=== PATIENT | male | born 1945 | race Caucasian/White ===

== ENCOUNTER 2023-07-18 09:09 | Observation (INO) ==
--- NOTE | 2023-07-18 09:22 | Emergency Department Note ---
Impression & Plan Aspiration pneumonia, Dementia, Leukocytosis, CKD (chronic kidney disease) ED Provider Note NAME: JOSE LUIS HARRELL AGE: 77 SEX: M : 1945 ARRIVES VIA: Ambulance INFORMANT: Patient ED PROVIDER(S): Erick Zayas MD CHIEF COMPLAINT: Coffee ground emesis, referred. PLAN: Disposition: Admit MEDICAL DECISION MAKING: The patient is a 77-year-old gentleman with a past medical history of dementia, diabetes, COPD who presents to the emergency department via EMS from his memory care unit at [facility] for evaluation of coffee-ground emesis x 2 that occurred this morning. Patient is a poor historian. 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 On evaluation patient is chronically ill-appearing but no distress, afebrile with heart in the 90s and vital signs otherwise stable. Appears clinically dry. Abdomen is nontender. EKG without overt acute ischemia. Chest x-ray with patchy mid to lower consolidation concerning for aspiration pneumonia. WBC 17.2 K with neutrophil predominance though no left shift. Hemoglobin and platelets within normal limits. Creatinine 1.9, slightly increased from recent but approximate to prior values. LFTs are unremarkable. Lipase not elevated. Procalcitonin is within normal limits. UA without evidence of infection. Depakote level is low. COVID-19 RNA, DAMIAN test was negative. Given the patient's leukocytosis and x-ray findings consistent with pneumonia I did review the patient's symptoms and presentation with his daughter over the phone. Given these findings and concern that he may not be compliant with his medications at his facility she did agree with and prefer for admission for further management. Blood cultures were obtained and treatment initiated with IV Zosyn. Case was d/w Dr. Crockett, [facility] hospital[place] who will evaluate the patient for admission. Triage Nursing notes reviewed and agree them. Prior/external medical records reviewed Vital Signs: reviewed Differential diagnosis: Gastroenteritis, food borne illness, infections, appendicitis, diverticulitis, inflammatory bowel disease, obstruction, GI bleed, biliary pathology, volvulus, as well as other pathologies. ER treatment provided: See below. Diagnostics interpreted by me: ECG: Sinus rhythm with PACs, 95 bpm, no overt ST elevation or depression, QTc 464 QRS 84. Cardiac Monitoring: An order for continuous cardiac monitoring was placed and demonstrated Sinus rhythm with PACs, 95 bpm. Laboratory studies: See below Imaging studies: See below Consultation(s): Case was d/w Dr. Crockett, [facility] hospitalist who will evaluate the patient for admission. HPI: The patient is a 77-year-old gentleman with a past medical history of dementia, diabetes, COPD who presents to the emergency department via EMS from his memory care unit at [facility] for evaluation of coffee-ground emesis x 2 that occurred this morning. Patient is a poor historian. 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 ROS: See above HPI for pertinent positives & negatives. A total of 10 systems reviewed and were otherwise negative. VITALS:See Below PHYSICAL EXAMINATION: GENERAL: Awake, alert, chronically ill-appearing, in no distress HENT: Normocephalic, atraumatic. Oropharynx with dry mucous membranes and otherwise unremarkable. EYES: Normal conjunctiva. Sclera non-icteric. NECK: Supple. No nuchal rigidity. FROM. No JVD. RESPIRATORY: Clear to auscultation. CARDIAC: Regular rate, normal rhythm. Extremities warm and well perfused. Pulses equal. ABDOMEN: Soft, non-distended. No tenderness to palpation. No rebound or guarding. No masses. MUSCULOSKELETAL: Chest examination reveals no tenderness. The back is symmetrical on inspection without obvious abnormality. There is no CVA tenderness to palpation. No joint edema. LOWER EXTREMITIES: Calves are equal size bilaterally and non-tender. No edema. No discoloration. NEURO: Confused at baseline for dementia. No focal sensory or motor deficits noted. SKIN: No rash or jaundice noted. 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 Hyperlipidemia Dementia Social History Smoking Status: Unknown if ever smoked Preferred Language: Vincentian Communication Ability: Unable Art Class Model Required: No Beliefs That Will Affect Care: None Current Living Situation: Half-Way Current Living Situation Comment: [facility] Other Information That Helps Us Care for You: No Assistive Devices: Hearing Aid - Bilateral Allergies Allergies Allergy/AdvReac Type Severity Reaction Status Date / Time lorazepam Allergy Unknown Verified 07/18/23 10:36 IVP dye Allergy Unknown Uncoded 07/18/23 10:36 Home Meds Home Medications Medication Instructions Recorded Confirmed acetaminophen 325 mg tablet 650 mg PO Q6H PRN Pain or Fever 07/18/23 07/18/23 aspirin 81 mg chewable tablet 81 mg PO DAILY 07/18/23 07/18/23 azithromycin 500 mg tablet 500 mg PO 3XWK 07/18/23 07/18/23 bisacodyl 10 mg rectal suppository 10 mg NC DAILY PRN Constipation 07/18/23 07/18/23 (Dulcolax (bisacodyl)) clobetasol 0.05 % topical cream 1 applic topical BID rash on 07/18/23 07/18/23 trunk/arms dextrose 40 % oral gel 1 ea PO DAILY PRN Hypoglycemia 07/18/23 07/18/23 less than 60 diphenhydramine-zinc acetate 1 1 applic topical DAILY rash 07/18/23 07/18/23 %-0.1 % topical cream (Benadryl Itch Stopping) divalproex 125 mg capsule,delayed 0 mg PO TID 07/18/23 07/18/23 release sprinkle ferrous sulfate 325 mg (65 mg 325 mg PO BID 07/18/23 07/18/23 iron) tablet (FeroSul) furosemide 40 mg tablet 40 mg PO DAILY 07/18/23 07/18/23 glucagon HCl 1 mg solution for 1 mg IM DAILY PRN hypoglycemia 07/18/23 07/18/23 injection (Glucagon (HCl) Emergency Kit) haloperidol 0.5 mg tablet 0.25 mg PO Q12H PRN Behavioral 07/18/23 07/18/23 Disturbance insulin glargine 100 unit/mL (3 17 unit subcut HS 07/18/23 07/18/23 mL) subcutaneous pen (Lantus Solostar U-100 Insulin) insulin lispro 100 unit/mL 1 sliding scale dose subcut 07/18/23 07/18/23 subcutaneous pen (Humalog KwikPen USEASDIRECTD (U-100) Insulin) magnesium hydroxide 400 mg/5 mL 2,400 mg PO DAILY PRN Constipation 07/18/23 07/18/23 oral suspension (Milk of Magnesia) mirtazapine 15 mg tablet 15 mg PO HS 07/18/23 07/18/23 ondansetron HCl 4 mg tablet 4 mg PO Q6H PRN Nausea And Vomiting 07/18/23 07/18/23 pantoprazole 20 mg tablet,delayed 20 mg PO QAM 07/18/23 07/18/23 release pramoxine 1 % lotion 1 applic topical BID rash 07/18/23 07/18/23 quetiapine 100 mg tablet 150 mg PO BID 07/18/23 07/18/23 roflumilast 500 mcg tablet 500 mcg PO DAILY 07/18/23 07/18/23 sodium phosphates 19 gram-7 118 ml NC DAILY PRN Constipation 07/18/23 07/18/23 gram/118 mL enema (Enema) sucralfate 1 gram tablet 1 g PO BID 07/18/23 07/18/23 Results & Data (ED) Vital Signs Vital Signs - 24 hr 07/18/23 09:15 07/18/23 09:16 07/18/23 09:17 Temperature 36.1 C L Temperature Source Oral Pulse Rate 98 H 96 H 99 H Pulse Rate [Apical] Pulse Rate from SpO2 Sensor 96 H Respiratory Rate 19 20 Respiratory Effort / Characteristics Non-Labored Spontaneous Respiratory Depth Normal Blood Pressure 126/78 Blood Pressure [Right Arm] Blood Pressure Mean 94 Blood Pressure Mean [Right Arm] Pulse Oximetry 92 92 Oxygen Delivery Method Room Air Sepsis Recent Fever Within 48 Hours No Sepsis New/Unexplained Change in Mental Status N/A Sepsis Action Taken by Nursing No Action Required 07/18/23 09:38 07/18/23 10:00 07/18/23 10:30 Temperature Temperature Source Pulse Rate 95 H 93 H Pulse Rate [Apical] 94 H Pulse Rate from SpO2 Sensor 95 H 93 H Respiratory Rate 18 18 20 Respiratory Effort / Characteristics Non-Labored Spontaneous Respiratory Depth Normal Blood Pressure Blood Pressure [Right Arm] 111/56 L Blood Pressure Mean Blood Pressure Mean [Right Arm] 74 Pulse Oximetry 92 97 93 Oxygen Delivery Method Room Air Sepsis Recent Fever Within 48 Hours Sepsis New/Unexplained Change in Mental Status Sepsis Action Taken by Nursing Laboratory Data Attestation: I reviewed the patient's lab results. 07/18/23 20:09 07/18/23 09:30 Lab Results 07/18/23 07/18/23 07/18/23 Range/Units 09:28 09:29 09:30 WBC 17.28 H (4.8-10.8) K/ul RBC 4.54 L (4.70-6.10) M/uL Hgb 14.7 (14.0-18.0) g/dl Hct 41.6 L (42.0-52.0) % MCV 91.6 (80.0-100.0) fL MCH 32.4 (25.0-34.0) pg MCHC 35.3 (32.0-36.0) g/dL RDW Std Deviation 40.0 (36.4-46.3) fL RDW Coeff of Tejinder 12.2 (11.5-14.5) % Plt Count 291 (130-400) K/uL MPV 10.1 (9.4-12.4) fL Immature Gran % (Auto) 0.6 % Neut % (Auto) 87.5 % Lymph % (Auto) 4.9 % [place] % (Auto) 6.7 % Eos % (Auto) 0.0 % Baso % (Auto) 0.3 % Neut # (Auto) 15.11 H (1.40-6.50) K/uL Lymph # (Auto) 0.85 L (1.20-3.40) K/uL [place] # (Auto) 1.15 H (0.11-0.59) K/uL Eos # (Auto) 0.00 (0.00-0.50) K/uL Baso # (Auto) 0.06 (0.00-0.20) K/uL Immature Gran # (Auto) 0.11 (0.01-0.20) K/uL PT 11.4 (9.0-12.0) Seconds INR 1.0 (0.9-1.1) Sodium 138 (136-145) mmol/L Potassium 3.4 L (3.5-5.1) mmol/L Chloride 93 L (98-107) mmol/L Carbon Dioxide 36 H (21-32) mmol/L Anion Gap 9 (3-11) BUN 41 H (6-23) mg/dl Creatinine 1.93 H (0.6-1.4) mg/dl Est Cr Clr Drug Dosing Not Reportable Est GFR ( Amer) 37.3 ml/min Est GFR (Non-Af Amer) 32.2 ml/min BUN/Creatinine Ratio 21.2 H (10-20) Glucose 298 H (70-99(Fasting)) mg/dl Lactate (0.4-2.0) mmol/L Calcium 10.5 H (8.6-10.3) mg/dl Total Bilirubin 0.9 (0.2-1.0) mg/dl AST 17 (13-39) U/L ALT 16 (7-52) U/L Alkaline Phosphatase 61 (34-104) U/L Total Protein 6.8 (6.0-8.3) gm/dl Albumin 4.1 (3.4-5.0) gm/dl Globulin 2.7 (2.5-4.0) gm/dl Albumin/Globulin Ratio 1.5 (0.9-2) Lipase 9 L (11-82) U/L Procalcitonin 0.22 (0-0.5) ng/ml Valproic Acid 18 L (50-100) mcg/ml 07/18/23 Range/Units 12:48 WBC (4.8-10.8) K/ul RBC (4.70-6.10) M/uL Hgb (14.0-18.0) g/dl Hct (42.0-52.0) % MCV (80.0-100.0) fL MCH (25.0-34.0) pg MCHC (32.0-36.0) g/dL RDW Std Deviation (36.4-46.3) fL RDW Coeff of Tejinder (11.5-14.5) % Plt Count (130-400) K/uL MPV (9.4-12.4) fL Immature Gran % (Auto) % Neut % (Auto) % Lymph % (Auto) % [place] % (Auto) % Eos % (Auto) % Baso % (Auto) % Neut # (Auto) (1.40-6.50) K/uL Lymph # (Auto) (1.20-3.40) K/uL [place] # (Auto) (0.11-0.59) K/uL Eos # (Auto) (0.00-0.50) K/uL Baso # (Auto) (0.00-0.20) K/uL Immature Gran # (Auto) (0.01-0.20) K/uL PT (9.0-12.0) Seconds INR (0.9-1.1) Sodium (136-145) mmol/L Potassium (3.5-5.1) mmol/L Chloride (98-107) mmol/L Carbon Dioxide (21-32) mmol/L Anion Gap (3-11) BUN (6-23) mg/dl Creatinine (0.6-1.4) mg/dl Est Cr Clr Drug Dosing Est GFR ( Amer) ml/min Est GFR (Non-Af Amer) ml/min BUN/Creatinine Ratio (10-20) Glucose (70-99(Fasting)) mg/dl Lactate 1.9 (0.4-2.0) mmol/L Calcium (8.6-10.3) mg/dl Total Bilirubin (0.2-1.0) mg/dl AST (13-39) U/L ALT (7-52) U/L Alkaline Phosphatase (34-104) U/L Total Protein (6.0-8.3) gm/dl Albumin (3.4-5.0) gm/dl Globulin (2.5-4.0) gm/dl Albumin/Globulin Ratio (0.9-2) Lipase (11-82) U/L Procalcitonin (0-0.5) ng/ml Valproic Acid (50-100) mcg/ml Administered Medications Clobetasol Propionate (Clobetasol Propionate 0.05% Cream 15 Gm Tube) 1 appln TOP BID JEFE Stop: 08/17/23 20:59 Last Admin: 07/18/23 20:20 Dose: 1 appln Documented By: ROE Divalproex Sodium (Divalproex Sodium Sprinkle/Del-Rel 125 Mg Cap) 250 mg PO BID JEFE Stop: 08/17/23 20:59 Last Admin: 07/18/23 20:19 Dose: 250 mg Documented By: ROE Parenteral Electrolytes (Plasma-Lyte A Ph 7.4) 1,000 mls @ 125 mls/hr IV .Q8H JEFE Stop: 07/19/23 06:29 Last Admin: 07/18/23 15:32 Dose: 125 mls/hr Documented By: ACC Pantoprazole Sodium 40 mg/ (Syringe) 10 mls @ 5 mls/min IV BID JEFE Stop: 08/17/23 20:59 Last Admin: 07/18/23 20:18 Dose: 5 mls/min Documented By: ROE Ampicillin Sodium/Sulbactam Sodium 3,000 mg/ Sodium Chloride 100 mls @ 100 mls/hr IV Q6H JEFE Stop: 07/25/23 19:59 Last Infusion: 07/18/23 21:21 Dose: Infused Documented By: Admin: 07/18/23 20:18 Dose: 100 mls/hr Documented By: ROE Insulin Aspart (Insulin Aspart Per Unit Charge) 0 units SC Q6 JEFE Stop: 08/17/23 17:59 Last Admin: 07/18/23 18:35 Dose: 2 units Documented By: MIGUEL Co-signed By: BOLIVAR Insulin Glargine (Lantus Per Unit Charge) 8 units SQ HS JEFE Stop: 08/17/23 20:59 Last Admin: 07/18/23 21:21 Dose: Not Given Documented By: ROE Mirtazapine (Mirtazapine Tab 15 Mg Tab) 15 mg PO HS JEFE Stop: 08/17/23 20:59 Last Admin: 07/18/23 20:19 Dose: 15 mg Documented By: ROE Quetiapine Fumarate (Quetiapine Fumarate 100 Mg Tablet) 150 mg PO BID JEFE Stop: 08/17/23 20:59 Last Admin: 07/18/23 20:19 Dose: 150 mg Documented By: ROE Sucralfate (Sucralfate 1 Gm Tab) 1 gm PO BID JEFE Stop: 08/17/23 20:59 Last Admin: 07/18/23 20:19 Dose: 1 gm Documented By: ROE Discontinued Medications Sodium Chloride (Nss) 500 mls @ 999 mls/hr IV .Q31M ONE Stop: 07/18/23 09:42 Last Infusion: 07/18/23 10:28 Dose: Infused Documented By: Admin: 07/18/23 09:36 Dose: 999 mls/hr Documented By: KELIN Famotidine (Pepcid 20mg Iv Push) 20 mg in 5 mls @ 2.5 mls/min IV NOW STA Stop: 07/18/23 09:28 Last Admin: 07/18/23 09:36 Dose: 2.5 mls/min Documented By: KELIN Pantoprazole Sodium 40 mg/ (Syringe) 10 mls @ 5 mls/min IV NOW ONE Stop: 07/18/23 09:29 Last Admin: 07/18/23 10:28 Dose: 5 mls/min Documented By: KELIN Piperacillin Sod/Tazobactam Sod (Zosyn) 4.5 gm in 100 mls @ 200 mls/hr IV NOW ONE Stop: 07/18/23 13:09 Last Infusion: 07/18/23 15:38 Dose: Infused Documented By: Admin: 07/18/23 13:50 Dose: 200 mls/hr Documented By: ACC Potassium Chloride (K Ashwin / Wtr) 10 meq in 100 mls @ 100 mls/hr IV ONE ONE Stop: 07/18/23 15:34 Last Admin: 07/18/23 15:37 Dose: Not Given Documented By: ACC Potassium Chloride (K Ashwin / Wtr) 10 meq in 100 mls @ 100 mls/hr IV Q1H JEFE Stop: 07/18/23 16:44 Last Infusion: 07/18/23 20:08 Dose: Infused Documented By: Admin: 07/18/23 18:04 Dose: 100 mls/hr Documented By: Infusion: 07/18/23 18:00 Dose: Infused Documented By: Admin: 07/18/23 17:00 Dose: 100 mls/hr Documented By: MIGUEL Insulin Aspart (Insulin Aspart Per Unit Charge) 0 units SC ACHS JEFE Stop: 08/17/23 16:29 Last Admin: 07/18/23 17:57 Dose: Not Given Documented By: MIGUEL Ondansetron HCl (Ondansetron Inj 2 Mg/Ml 2 Ml Vial) 4 mg IV NOW STA Stop: 07/18/23 09:29 Last Admin: 07/18/23 09:36 Dose: 4 mg Documented By: KELIN Imaging Data Radiologist's Impression: Chest X-Ray 07/18/23 10:40 SINGLE VIEW CHEST CLINICAL HISTORY: Vomiting. Generalized abdominal pain. FINDINGS: An AP, portable, upright chest radiograph is obtained. No prior studies are available for comparison at the time of dictation. The heart is enlarged. Patchy airspace consolidation is seen in the mid to lower lungs bilaterally. No large pleural effusion or pneumothorax is seen. The skeletal structures are osteopenic. The bony thorax is grossly intact. Arthritic change is seen in the shoulders. IMPRESSION: 1. Patchy airspace consolidation is seen in mid to lower lungs bilaterally. Correlate clinically for evidence of pneumonia/aspiration pneumonitis. Radiographic follow-up to resolution is recommended. 2. Cardiomegaly without clear radiographic evidence of congestive failure. ACT 112: Negative or not required by law. Electronically signed by: Domenico Childress M.D. 07/18/2023 11:13 AM Discharge Plan Visit Data Chief Complaint: GI Bleed ED Provider: Erick Zayas Discharge Problem: Aspiration pneumonia, Dementia, Leukocytosis, CKD (chronic kidney disease) Patient Disposition: Admitted As Inpatient Discharge Instructions Interventions: ED Discharge Assessment Last Done: 07/18/23 15:44 Discharge Problem: Aspiration pneumonia Qualifiers: Aspiration pneumonia type: unspecified Laterality: bilateral Lung location: l ower lobe of lung Qualified Code(s): J69.0 - Pneumonitis due to inhalation of food and vomit Dementia Qualifiers: Dementia type: unspecified type Dementia severity: unspecified severity D ementia behavioral or psychological symptom: unspecified whether behavioral, psychotic, or mood disturbance or anxiety Qualified Code(s): F03.90 - Unspecified dementia, unspecified severity, without behavioral disturbance, psychotic disturbance, mood disturbance, and anxiety Leukocytosis Qualifiers: Leukocytosis type: unspecified Qualified Code(s): D72.829 - Elevated white blood cell count, unspecified CKD (chronic kidney disease) Qualifiers: Chronic kidney disease stage: unspecified stage Qualified Code(s): N18.9 - Chronic kidney disease, unspecified
[2023-07-18] MEDS: SODIUM CHLORIDE 0.9% 500 ML IV ONE (09:36)
[2023-07-18] MEDS: ONDANSETRON INJ 2 MG/ML 2 ML VIAL IV STA (09:36)
[2023-07-18] MEDS: FAMOTIDINE 20MG IV PUSH 20 MG/5 ML SYR IV STA (09:36)
[2023-07-18 09:51] LABS: Basophils # (auto) 0.06 K/uL (0.00-0.20); Basophils % (auto) 0.3 %; Hematocrit (blood only) 41.6 % (42.0-52.0); Hemoglobin 14.7 g/dl (14.0-18.0); Immature Granulocytes # (auto) 0.11 K/uL (0.01-0.20); Immature Granulocytes % (auto) 0.6 %; Lymphocytes # (auto) 0.85 K/uL (1.20-3.40); Lymphocytes % (auto) 4.9 %; Mean Corpuscular Hemoglobin 32.4 pg (25.0-34.0); Mean Corpuscular Hgb Conc 35.3 g/dL (32.0-36.0); Mean Corpuscular Volume 91.6 fL (80.0-100.0); Mean Platelet Volume 10.1 fL (9.4-12.4); Monocytes # (auto) 1.15 K/uL (0.11-0.59); Monocytes % (auto) 6.7 %; Neutrophils # (auto) 15.11 K/uL (1.40-6.50); Neutrophils % (auto) 87.5 %; Platelet Count 291 K/uL (130-400); RDW Coefficient of Variation 12.2 % (11.5-14.5); Red Blood Count 4.54 M/uL (4.70-6.10); White Blood Count 17.28 K/ul (4.8-10.8)
[2023-07-18 10:05] LABS: Alanine Aminotransferase 16 U/L (7-52); Albumin Globulin Ratio 1.5 (0.9-2); Albumin Level 4.1 gm/dl (3.4-5.0); Alkaline Phosphatase 61 U/L (34-104); Anion Gap 9 (3-11); Aspartate Aminotransferase 17 U/L (13-39); BUN Creatinine Ratio 21.2 (10-20); Bilirubin,Total 0.9 mg/dl (0.2-1.0); Blood Urea Nitrogen 41 mg/dl (6-23); Calcium 10.5 mg/dl (8.6-10.3); Carbon Dioxide 36 mmol/L (21-32); Chloride 93 mmol/L (98-107); Est GFR (African American) 37.3 ml/min; Est GFR (Non-African American) 32.2 ml/min; Globulin 2.7 gm/dl (2.5-4.0); Glucose 298 mg/dl (70-99(Fasting)); Lipase 9 U/L (11-82); Potassium 3.4 mmol/L (3.5-5.1); Sodium 138 mmol/L (136-145); Total Protein 6.8 gm/dl (6.0-8.3)
[2023-07-18 10:15] LABS: Prothrombin Time 11.4 Seconds (9.0-12.0)
[2023-07-18] MEDS: PANTOprazole 40 MG in SYRINGE 0 ML IV ONE (10:28)
--- NOTE | 2023-07-18 11:14 | XRay Report ---
SINGLE VIEW CHEST CLINICAL HISTORY: Vomiting. Generalized abdominal pain. FINDINGS: An AP, portable, upright chest radiograph is obtained. No prior studies are available for c omparison at the time of dictation. The heart is enlarged. Patchy airspace consolidation is seen in t he mid to lower lungs bilaterally. No large pleural effusion or pneumothorax is seen. The skeletal st ructures are osteopenic. The bony thorax is grossly intact. Arthritic change is seen in the shoulders . IMPRESSION: 1. Patchy airspace consolidation is seen in mid to lower lungs bilaterally. Correlate clinically for evidence of pneumonia/aspiration pneumonitis. Radiographic follow-up to resolution is recommended. 2. Cardiomegaly without clear radiographic evidence of congestive failure. ACT 112: Negative or not required by law. Electronically signed by: Domenico Childress M.D. 07/18/2023 11:13 AM
--- NOTE | 2023-07-18 12:49 | History & Physical Report ---
Date of Service July 18, 2023 Assessment & Plan (1) Aspiration pneumonia: Plan: Coffee-ground emesis x 2 episodes on the evening of 07/16, and morning of 07/17 Hx of aspiration pneumonia Leukocytosis at 17.28 with a neutrophil predominance on arrival; afebrile CXR revealed patchy airspace consolidation consistent with aspiration pneumonitis MRSA swab ordered, pending Blood cultures ordered, pending Keep n.p.o. for now with the exception of p.o. medications Elevate HOB >45 degrees Zosyn 4.5 g IV given in the ED Will switch to Unasyn 3000 mg IV q6h Zofran as needed for nausea/vomiting Speech therapy consult/eval to assess for advancement of diet Aspiration precautions A.m. CBC, BMP (2) GI bleed: Plan: In the setting of coffee-ground emesis Hgb 14.7 on arrival Elevated BUN/creatinine at 21.2 Protonix 40 mg IV BID IVF resuscitation with Plasma-Lyte at 125mL/hr x 2 N.p.o. (except p.o. medications) Aspiration precautions Continue to monitor H&H (3) Dementia: Plan: Patient is currently around his cognitive baseline, per daughter and [facility] Continue Seroquel (4) Personal history of pulmonary embolism: Plan: Per [facility], patient normally takes aspirin daily for prophylaxis (however, this is listed as paroxysmal a fib on med rec) Hold in the setting of hematemesis (5) Type 2 diabetes mellitus with diabetic chronic kidney disease: Plan: Last A1c 7.2% on 07/14/23 Glucose 298 on arrival BSG q6h while NPO, then BSG ACHS once assessed by speech therapy Keep n.p.o. for now then advance to T2DM diet as tolerated Patient normally takes Lantus 17u HS Will dose reduced to 8u HS while inpatient/n.p.o. SSI with target goal range [id number], CF 45, carb ratio 15 Adjust regimen as needed (6) Unspecified mood [affective] disorder: Plan: Continue Depakote Haldol 0.25 mg p.o. q12h as needed for agitation (7) Hypokalemia: Plan: Mild; K 3.4 on arrival Likely secondary to recent vomiting K rider 10mEq x 2 Re-check a.m. potassium (8) COPD (chronic obstructive pulmonary disease): Plan: Continue roflumilast Hold Azithromycin ppx (9) Aphasia: Plan Disposition: Admit to [facility] DNR/DNI Keep n.p.o. for now, advance diet as tolerated (aspiration precautions) VTE PPx: TEDs; Hold chemical DVT PPx in setting of ground coffee emesis History of Present Illness Chief Complaint: GI bleed, coffee-ground emesis Primary Care Provider: [facility]ardo is a 77-year-old male with PMH of dementia, aspiration pneumonia, GERD, COPD, HLD, aphasia, pulmonary embolism, and T2DM. He presented via EMS from [facility] for coffee-ground emesis that began the evening of 07/16. Two episodes of coffee-ground emesis, with the first being last night around midnight, and the second being around 0800 on 07/17. Patient is a poor historian at baseline due to his advanced dementia; he is nonverbal in the exam room, and does not respond to questioning or commands. Per review of EMS notes, he did not take his regular morning medications today. Spoke on the phone with TYSON Martinez at [facility] ([phone]), to obtain further history. Hx of Carlton's esophagus. Patient has a history of aspiration pneumonia, and has had several recurrent episodes of ground coffee emesis over the past year; records from [facility]. He currently takes iron, Protonix, and Carafate for this. TYSON also notes that he is on azithromycin Friday, Friday, and Friday for chronic aspiration pneumonia prophylaxis; ? may be for COPD. Patient does have a history of a pulmonary embolism, and is currently on aspirin for prophylaxis, but did not take aspirin yesterday due to the coffee-ground emesis. TYSON also notes that he was previously on hospice services, but this was revoked during his last hospital visit, and the daughter/POA has chosen not to reinitiate hospice. Patient has pulmonary nodules, however these were never worked up. As for cognitive baseline, TYSON reports that he typically responds to commands, but is was around his baseline the last time he was seen. She notes he can become agitated in the past, and has required PRN Haldol at times. 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 Spoke on the phone with patient's daughter/POA (Edwin) who is okay with him coming into the hospital for the treatment of aspiration PNA; this would effectively revoke his current POLST form for comfort measures only (per Dr. Crockett). Patient's daughter clarified that the patient was placed on hospice 1.5 years ago for what was thought to be terminal cancer; after about a year he was taken off hospice. She declines a palliative care consult at this time. However, she would like to speak with case management regarding options for a new detention that is closer to her place in [place]. Patient's daughter notes that he does have a mild allergy to amoxicillin (notes that his face flushes and turns red). However, she does note that he has been given Augmentin and Unasyn in the past for his aspiration pneumonia and has never had rash, hives, or anaphylaxis. She does confirm that he is a DNR/DNI, and would like no scopes or feeding tubes. She believes he was placed on prednisone recently for his rash. She also notes that he has been around his cognitive baseline, and is not normally oriented to name/, and does not normally respond to questioning/commands. She has been trying to decrease his Seroquel from 3 times daily to twice daily. ED course: Zosyn 4.5 g IV NSS 500 mL IV Famotidine 20 mg IV Protonix 4 mg IV Zofran 4 mg IV Unable to obtain ROS given patient's advanced dementia. Allergies Allergy/AdvReac Type Severity Reaction Status Date / Time lorazepam Allergy Unknown Verified 07/18/23 10:36 IVP dye Allergy Unknown Uncoded 07/18/23 10:36 Home Medications Medication Instructions Recorded Confirmed Type acetaminophen 325 mg tablet 650 mg PO Q6H PRN Pain or Fever 07/18/23 07/18/23 History aspirin 81 mg chewable tablet 81 mg PO DAILY 07/18/23 07/18/23 History azithromycin 500 mg tablet 500 mg PO 3XWK 07/18/23 07/18/23 History bisacodyl 10 mg rectal suppository 10 mg OR DAILY PRN Constipation 07/18/23 07/18/23 History (Dulcolax (bisacodyl)) clobetasol 0.05 % topical cream 1 applic topical BID rash on 07/18/23 07/18/23 History trunk/arms dextrose 40 % oral gel 1 ea PO DAILY PRN Hypoglycemia 07/18/23 07/18/23 History less than 60 diphenhydramine-zinc acetate 1 1 applic topical DAILY rash 07/18/23 07/18/23 History %-0.1 % topical cream (Benadryl Itch Stopping) divalproex 125 mg capsule,delayed 0 mg PO TID 07/18/23 07/18/23 History release sprinkle ferrous sulfate 325 mg (65 mg 325 mg PO BID 07/18/23 07/18/23 History iron) tablet (FeroSul) furosemide 40 mg tablet 40 mg PO DAILY 07/18/23 07/18/23 History glucagon HCl 1 mg solution for 1 mg IM DAILY PRN hypoglycemia 07/18/23 07/18/23 History injection (Glucagon (HCl) Emergency Kit) haloperidol 0.5 mg tablet 0.25 mg PO Q12H PRN Behavioral 07/18/23 07/18/23 History Disturbance insulin glargine 100 unit/mL (3 17 unit subcut HS 07/18/23 07/18/23 History mL) subcutaneous pen (Lantus Solostar U-100 Insulin) insulin lispro 100 unit/mL 1 sliding scale dose subcut 07/18/23 07/18/23 History subcutaneous pen (Humalog KwikPen USEASDIRECTD (U-100) Insulin) magnesium hydroxide 400 mg/5 mL 2,400 mg PO DAILY PRN Constipation 07/18/23 07/18/23 History oral suspension (Milk of Magnesia) mirtazapine 15 mg tablet 15 mg PO HS 07/18/23 07/18/23 History ondansetron HCl 4 mg tablet 4 mg PO Q6H PRN Nausea And Vomiting 07/18/23 07/18/23 History pantoprazole 20 mg tablet,delayed 20 mg PO QAM 07/18/23 07/18/23 History release pramoxine 1 % lotion 1 applic topical BID rash 07/18/23 07/18/23 History quetiapine 100 mg tablet 150 mg PO BID 07/18/23 07/18/23 History roflumilast 500 mcg tablet 500 mcg PO DAILY 07/18/23 07/18/23 History sodium phosphates 19 gram-7 118 ml OR DAILY PRN Constipation 07/18/23 07/18/23 History gram/118 mL enema (Enema) sucralfate 1 gram tablet 1 g PO BID 07/18/23 07/18/23 History Past Med/Surg History Medical History Unspecified mood [affective] disorder Type 2 diabetes mellitus with diabetic chronic kidney disease Rash GERD (gastroesophageal reflux disease) Aphasia Personal history of pulmonary embolism USP (current) use of insulin Hyperlipidemia Dementia Social History Smoking Status: Unknown if ever smoked Preferred Language: Burundian Communication Ability: Effective Business Development Associate Required: No Beliefs That Will Affect Care: None Current Living Situation: Sn[facility] Current Living Situation Comment: [facility] Assistive Devices: Hearing Aid - Bilateral Review of Systems Review of Systems: See HPI above Physical Exam Physical Exam: General: no acute distress; non-toxic appearing; well-nourished; cooperative; 95% SpO2 on RA HEENT: normocephalic, atraumatic; no scleral icterus; PERRLA; dry mucus membrane; hearing aid in place; unable to assess vision/hearing Neck: supple; no lymphadenopathy; trachea midline Skin: warm, dry without signs of tenting; no cyanosis; no rashes, bruising, lesions, or erythema noted CV: chest wall NTP; RRR; S1/S2 normal; no murmurs/rubs/gallops; pulses intact and symmetric at radial, DP, and PT Lungs: no acute respiratory distress; symmetrical chest wall expansion; clear breath sounds across all lung orozco w/o adventitious sounds; no wheezing ABD: Soft, NTP; BS present; no rebound/guarding; no distention MSK: no tics or fasciculations; no edema noted in the LEs b/l, nonerythematous Neuro: Nonresponsive to questioning; alert, but not oriented; does not respond to commands; normal mood and affect; no facial droop; unable to assess for sensation Results & Data Results & Data Vital Signs (Past 12 Hours) Vital Signs Temp Pulse Pulse Resp BP BP Pulse Ox 07/18/23 10:30 94 H 20 111/56 L 93 07/18/23 09:17 99 H 07/18/23 09:15 36.1 C L 98 H 19 126/78 92 O2 Del Method 07/18/23 10:30 Room Air 07/18/23 09:17 07/18/23 09:15 Room Air Laboratory Results Abnormal lab results 07/18/23 07/18/23 07/18/23 Range/Units 09:28 09:29 09:30 WBC 17.28 H (4.8-10.8) K/ul RBC 4.54 L (4.70-6.10) M/uL Hct 41.6 L (42.0-52.0) % Neut # (Auto) 15.11 H (1.40-6.50) K/uL Lymph # (Auto) 0.85 L (1.20-3.40) K/uL Gillespie # (Auto) 1.15 H (0.11-0.59) K/uL Potassium 3.4 L (3.5-5.1) mmol/L Chloride 93 L (98-107) mmol/L Carbon Dioxide 36 H (21-32) mmol/L BUN 41 H (6-23) mg/dl Creatinine 1.93 H (0.6-1.4) mg/dl BUN/Creatinine Ratio 21.2 H (10-20) Glucose 298 H (70-99(Fasting)) mg/dl Calcium 10.5 H (8.6-10.3) mg/dl Lipase 9 L (11-82) U/L Valproic Acid 18 L (50-100) mcg/ml Diagnostic Findings Chest X-Ray 07/18/23 10:40 SINGLE VIEW CHEST CLINICAL HISTORY: Vomiting. Generalized abdominal pain. FINDINGS: An AP, portable, upright chest radiograph is obtained. No prior studies are available for comparison at the time of dictation. The heart is enlarged. Patchy airspace consolidation is seen in the mid to lower lungs bilaterally. No large pleural effusion or pneumothorax is seen. The skeletal structures are osteopenic. The bony thorax is grossly intact. Arthritic change is seen in the shoulders. IMPRESSION: 1. Patchy airspace consolidation is seen in mid to lower lungs bilaterally. Correlate clinically for evidence of pneumonia/aspiration pneumonitis. Radiographic follow-up to resolution is recommended. 2. Cardiomegaly without clear radiographic evidence of congestive failure. ACT 112: Negative or not required by law. Electronically signed by: Domenico Childress M.D. 07/18/2023 11:13 AM ECG Additional Comments: EKG revealed sinus rhythm with PACs at 95 bpm; QTc 464 Code Status & VTE Plan Code Status POLST form signed on 12/16/2022 does report comfort measures only; DNR; this POLST form notes "do not transfer to hospital for life-sustaining treatment". Spoke to patient's daughter, and reconfirmed his DNR/DNI status. She is okay to admit for IV antibiotics. VTE Prophylaxis Plan VTE Prophylaxis will be ordered: Yes Supervising Physician Co-Signing Physician Notes I personally saw and examined the patient. I independently reviewed the labs, EKG, imaging, problem list, medication list, past medical history and family history. I verified all angel points and agree with Moo Nieto PA-C with the following exceptions and/or additions: 77 year old male presents to the ER with concerns for coffee-ground emesis and concern for aspiration. Patient unable to give any history. Please see collateral history as above. O/E Alert but not orientated x3, no respiratory distress, bibasal crackles, HS RRR, no murmurs, Abdo SNT A/P Aspiration pneumonia - Unasyn, SLT consult Coffee-ground emesis - no EGD per POA therefore no need to consult GI, Pantoprazole 40mg IV BID Goals of care - POA wishes hospitalization despite POA she signed saying comfort care only, she wishes to revoke this therefore crossed out, recommend she signs a new POLST this hospitalization PG Care Time/CCT Total # of Minutes Spent Total Time Spent with Patient: Total time spent is greater than 50% in coordination of care (as documented) at patient's floor/unit and/or counseling patient: [place] [address] INT INP/OBS CARE 3/75MIN Patient Type New Medical Decision Making High Complexity Diagnoses Aspiration pneumonia J69.0 GI bleed K92.2 Dementia F03.90 Personal history of pulmonary embolism Z86.711 Type 2 diabetes mellitus with diabetic chronic kidney disease E11.22 Unspecified mood [affective] disorder F39 Hypokalemia E87.6 COPD (chronic obstructive pulmonary disease) J44.9 Aphasia R47.01
[2023-07-18] MEDS: PIPERACILLIN/TAZOBACTAM 4.5 GM/100 ML BAG IV ONE (13:50)
[2023-07-18 14:30] LABS: Appearance Urine Clear (Clear); Bilirubin Urine Negative (Negative); Blood Urine Negative (Negative); Color Urine Yellow; Glucose Urine UA 1+ (Negative); Ketones Urine Trace (Negative); Leukocyte Esterase Urine Negative (Negative); Nitrite Urine Negative (Negative); Protein Urine Negative (Negative); Urobilinogen Urine Negative (Negative); pH Urine 5.5 (4.5-7.5)
[2023-07-18] MEDS: PLASMA-LYTE A 1,000 ML IV SCH (15:32)
[2023-07-18] MEDS: POTASSIUM CHLORIDE / WTR 10 MEQ/100 ML PLCT IV ONE (15:37)
[2023-07-18] MEDS ORDERED: GLUCAGON FOR INJ 1 MG VIAL SQ PRN (16:18)
[2023-07-18] MEDS ORDERED: DEXTROSE 50% 50 ML SYRINGE IV PRN (16:18)
[2023-07-18] MEDS ORDERED: GLUCOSE 40% GEL 15 GM TUBE PO PRN (16:18)
[2023-07-18] MEDS ORDERED: CARBOHYDRATES FOR HYPOGLYCEMIA PO PRN (16:18)
[2023-07-18] MEDS ORDERED: ONDANSETRON INJ 2 MG/ML 2 ML VIAL IV PRN (16:18)
[2023-07-18] MEDS ORDERED: GLUCOSE 10 TAB/TUBE PO PRN (16:18)
[2023-07-18] MEDS ORDERED: SOD PHOSPHATE/SOD BIPHOSPHATE ENEMA 132 ML BTL PR PRN (16:18)
[2023-07-18] MEDS ORDERED: haloperidoL 0.5 MG TAB PO PRN (16:18)
[2023-07-18] MEDS ORDERED: ACETAMINOPHEN 1,000 MG/100 ML VIAL IV PRN (16:18)
[2023-07-18] MEDS: POTASSIUM CHLORIDE / WTR 10 MEQ/100 ML PLCT IV SCH (17:00)
[2023-07-18] MEDS: INSULIN ASPART PER UNIT CHARGE SC SCH ×2 (17:57→18:35)
[2023-07-18] MEDS: PANTOprazole 40 MG in SYRINGE 0 ML IV SCH (20:18)
[2023-07-18] MEDS: AMPICILLIN/SULBACTAM SOD 3,000 MG in SODIUM CHLOR 0.9% MINI-B 100 ML IV SCH (20:18)
[2023-07-18] MEDS: MIRTAZAPINE TAB 15 MG TAB PO SCH (20:19)
[2023-07-18] MEDS: QUEtiapine FUMARATE 100 MG TABLET PO SCH (20:19)
[2023-07-18] MEDS: SUCRALFATE 1 GM TAB PO SCH (20:19)
[2023-07-18] MEDS: DIVALPROEX SODIUM SPRINKLE/DEL-REL 125 MG CAP PO SCH (20:19)
[2023-07-18] MEDS: CLOBETASOL PROPIONATE 0.05% CREAM 15 GM TUBE TOP SCH (20:20)
[2023-07-18 20:57] LABS: Hematocrit (blood only) 35.7 % (42.0-52.0); Hemoglobin 13.1 g/dl (14.0-18.0)
[2023-07-18] MEDS: LANTUS PER UNIT CHARGE SQ SCH (21:21)
[2023-07-19 05:30] LABS: A calco-baum cmplx NotReported Not Detected (NotDetected); Bact fragilis Not Reported Not Detected (NotDetected); Blood Culture Id Panel See PCR Comment (NotDetected); C auris Not Reported Not Detected (NotDetected); Calbicans Not Reported Not Detected (NotDetected); Candida glabrata Not Reported Not Detected (NotDetected); Candida krusei Not Reported Not Detected (NotDetected); Cneoformans/gatti Not Reported Not Detected (NotDetected); Cparapsilosis Not Reported Not Detected (NotDetected); E cloacae compx Not Reported Not Detected (NotDetected); Efaecalis Not Reported Not Detected (NotDetected); Efaecium Not Reported Not Detected (NotDetected); Enterobacterales Not Reported Not Detected (NotDetected); Escherichia coli Not Reported Not Detected (NotDetected); H influenzae Not Reported Not Detected (NotDetected); K aerogenes Not Reported Not Detected (NotDetected); Koxytoca Not Reported Not Detected (NotDetected); Kpneumoniae grp Not Reported Not Detected (NotDetected); Lmonocyt Not Reported Not Detected (NotDetected); N meningitidis Not Reported Not Detected (NotDetected); P aeruginosa Not Reported Not Detected (NotDetected); Proteus spp Not Reported Not Detected (NotDetected); Salmonella spp Not Reported Not Detected (NotDetected); Smarcescens Not Reported Not Detected (NotDetected); Staph lugdunensis Not Reported Not Detected (NotDetected); Staph spp. Not Reported Not Detected (NotDetected); Staphaureus Not Reported Not Detected (NotDetected); Staphepi Not Reported Not Detected (NotDetected); Stenmaltophilia Not Reported Not Detected (NotDetected); Strep agal(GrpB) Not Reported Not Detected (NotDetected); Strep pneum Not Reported Not Detected (NotDetected); Strep pyog (GrpA) Not Reported Not Detected (NotDetected); Strep spp Not Reported DETECTED (NotDetected)
--- NOTE | 2023-07-19 06:01 | Electrocardiogram Report ---
Test Reason : Blood Pressure : / mmHG Vent. Rate : 095 BPM Atrial Rate : 095 BPM P-R Int : 154 ms QRS Dur : 084 ms QT Int : 370 ms P-R-T Axes : 079 059 081 degrees QTc Int : 464 ms Sinus rhythm with Premature atrial complexes Otherwise normal ECG No previous ECGs available Confirmed by Juan Pablo Steven ([id number]) on 07/19/2023 6:00:57 AM Referred By: [facility] Confirmed By:Jozef Steven
[2023-07-19 06:12] LABS: Streptococcus spp DETECTED (NotDetected)
[2023-07-19 07:13] LABS: Basophils # (auto) 0.07 K/uL (0.00-0.20); Basophils % (auto) 0.8 %; Eosinophils # (auto) 0.18 K/uL (0.00-0.50); Eosinophils % (auto) 2.1 %; Hematocrit (blood only) 32.7 % (42.0-52.0); Hemoglobin 11.1 g/dl (14.0-18.0); Immature Granulocytes # (auto) 0.12 K/uL (0.01-0.20); Immature Granulocytes % (auto) 1.4 %; Lymphocytes # (auto) 1.95 K/uL (1.20-3.40); Lymphocytes % (auto) 22.6 %; Mean Corpuscular Hemoglobin 31.4 pg (25.0-34.0); Mean Corpuscular Hgb Conc 33.9 g/dL (32.0-36.0); Mean Corpuscular Volume 92.6 fL (80.0-100.0); Mean Platelet Volume 9.9 fL (9.4-12.4); Monocytes # (auto) 0.93 K/uL (0.11-0.59); Monocytes % (auto) 10.8 %; Neutrophils # (auto) 5.38 K/uL (1.40-6.50); Neutrophils % (auto) 62.3 %; Platelet Count 198 K/uL (130-400); RDW Coefficient of Variation 12.8 % (11.5-14.5); RDW Standard Deviation 43.4 fL (36.4-46.3); Red Blood Count 3.53 M/uL (4.70-6.10); White Blood Count 8.63 K/ul (4.8-10.8)
[2023-07-19 07:44] LABS: Anion Gap 3 (3-11); Blood Urea Nitrogen 29 mg/dl (6-23); Calcium 8.9 mg/dl (8.6-10.3); Carbon Dioxide 39 mmol/L (21-32); Chloride 102 mmol/L (98-107); Est GFR (African American) 40.3 ml/min; Est GFR (Non-African American) 34.8 ml/min; Glucose 132 mg/dl (70-99(Fasting)); Potassium 3.1 mmol/L (3.5-5.1); Sodium 144 mmol/L (136-145)
[2023-07-19] MEDS: SODIUM CHLORIDE 0.9% 1,000 ML IV SCH (09:22)
[2023-07-19] MEDS: FUROSEMIDE 40 MG TAB PO SCH (09:25)
[2023-07-19] MEDS: FERROUS SULFATE 325 MG TAB PO SCH (09:25)
[2023-07-19] MEDS: ROFLUMILAST 500 MCG TAB PO SCH (09:26)
[2023-07-19] MEDS ORDERED: Nursing to Pharmacy Communication SCH (10:30)
--- NOTE | 2023-07-19 10:36 | Gastrointestinal Consultation ---
Date of Consultation July 19, 2023 Assessment & Plan (1) Aspiration pneumonia: (2) Coffee ground emesis: Patient is currently hemodynamically stable. Per HCPOA, he does not wish to undergo any invasive testing, and it is not warranted at this time anyways Continue Pantoprazole 40 mg IV BID History of Present Illness Reason for Consultation: Hematemesis Attending Physician: Bimal Kuhn MD History of Present Illness The patient is demented and non-verbal, and therefore the history was obtained through review of his medical record. 77 yo CM with extensive PMHx including Carlton's esophagus, GERD, and recurrent aspiration PNA. As per patient record he has had multiple episodes of aspiration PNA and recurrent episodes of "coffee ground emesis." He is on chronic antibiotic therapy for his history of aspiration PNA. He was previously comfort measures only, but his daughter/POA has since rescinded this. He has significant dementia, and is non-verbal and does not follow commands during my evaluation. As per prior notes his POA confirms that he is a DNR/DNI, and would not like any endoscopic workup or evaluation for feeding tube. Allergies Allergy/AdvReac Type Severity Reaction Status Date / Time lorazepam Allergy Unknown Verified 07/18/23 10:36 IVP dye Allergy Unknown Uncoded 07/18/23 10:36 Home Medications Medication Instructions Recorded Confirmed Type acetaminophen 325 mg tablet 650 mg PO Q6H PRN Pain or Fever 07/18/23 07/18/23 History aspirin 81 mg chewable tablet 81 mg PO DAILY 07/18/23 07/18/23 History azithromycin 500 mg tablet 500 mg PO 3XWK 07/18/23 07/18/23 History bisacodyl 10 mg rectal suppository 10 mg [place] DAILY PRN Constipation 07/18/23 07/18/23 History (Dulcolax (bisacodyl)) clobetasol 0.05 % topical cream 1 applic topical BID rash on 07/18/23 07/18/23 History trunk/arms dextrose 40 % oral gel 1 ea PO DAILY PRN Hypoglycemia 07/18/23 07/18/23 History less than 60 diphenhydramine-zinc acetate 1 1 applic topical DAILY rash 07/18/23 07/18/23 History %-0.1 % topical cream (Benadryl Itch Stopping) divalproex 125 mg capsule,delayed 0 mg PO TID 07/18/23 07/18/23 History release sprinkle ferrous sulfate 325 mg (65 mg 325 mg PO BID 07/18/23 07/18/23 History iron) tablet (FeroSul) furosemide 40 mg tablet 40 mg PO DAILY 07/18/23 07/18/23 History glucagon HCl 1 mg solution for 1 mg IM DAILY PRN hypoglycemia 07/18/23 07/18/23 History injection (Glucagon (HCl) Emergency Kit) haloperidol 0.5 mg tablet 0.25 mg PO Q12H PRN Behavioral 07/18/23 07/18/23 History Disturbance insulin glargine 100 unit/mL (3 17 unit subcut HS 07/18/23 07/18/23 History mL) subcutaneous pen (Lantus Solostar U-100 Insulin) insulin lispro 100 unit/mL 1 sliding scale dose subcut 07/18/23 07/18/23 History subcutaneous pen (Humalog KwikPen USEASDIRECTD (U-100) Insulin) magnesium hydroxide 400 mg/5 mL 2,400 mg PO DAILY PRN Constipation 07/18/23 07/18/23 History oral suspension (Milk of Magnesia) mirtazapine 15 mg tablet 15 mg PO HS 07/18/23 07/18/23 History ondansetron HCl 4 mg tablet 4 mg PO Q6H PRN Nausea And Vomiting 07/18/23 07/18/23 History pantoprazole 20 mg tablet,delayed 20 mg PO QAM 07/18/23 07/18/23 History release pramoxine 1 % lotion 1 applic topical BID rash 07/18/23 07/18/23 History quetiapine 100 mg tablet 150 mg PO BID 07/18/23 07/18/23 History roflumilast 500 mcg tablet 500 mcg PO DAILY 07/18/23 07/18/23 History sodium phosphates 19 gram-7 118 ml [place] DAILY PRN Constipation 07/18/23 07/18/23 History gram/118 mL enema (Enema) sucralfate 1 gram tablet 1 g PO BID 07/18/23 07/18/23 History Patient History Medical History Unspecified mood [affective] disorder Type 2 diabetes mellitus with diabetic chronic kidney disease Rash GERD (gastroesophageal reflux disease) Aphasia Personal history of pulmonary embolism 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 Hyperlipidemia Dementia Social History Smoking Status: Unknown if ever smoked Preferred Language: Irish Communication Ability: Unable Web Mobile Designer Required: No Beliefs That Will Affect Care: None Current Living Situation: Assisted Current Living Situation Comment: [facility] Other Information That Helps Us Care for You: No Assistive Devices: Hearing Aid - Bilateral Review of Systems Review of Systems: Unobtainable due to cognitive status Physical Exam Constitutional: + ill appearing (chronic); no acute dist ress Respiratory: Auscultation: + diminished lung sounds Cardiovascular: RRR, no murmur, no edema Gastrointestinal (Abdomen): normal bowel sounds, soft, nontender, no hepatosplenomegaly Psychiatric: Orientation: + not alert and + not oriented x 3 Results & Data Vital Signs (Past 12 Hours) Vital Signs Temp Pulse Resp BP Pulse Ox O2 Del Method 07/19/23 07:18 36.5 C 63 16 111/64 93 Room Air PG Care Time/CCT Total # of Minutes Spent Total Time Spent with Patient: Total time spent is greater than 50% in coordination of care (as documented) at patient's floor/unit and/or counseling patient: Coding Level of Care Code 29593 INT INP/OBS CARE 3/75MIN Diagnoses Aspiration pneumonia J69.0 Aspiration pneumonia type: unspecified Laterality: bilateral Lung location: lower lobe of lung Coffee ground emesis K92.0 (1) Aspiration pneumonia Aspiration pneumonia type: unspecified Laterality: bilateral Lung location: lower lobe of lung Qualified Code(s): J69.0 - Pneumonitis due to inhalation of food and vomit
[2023-07-19] MEDS: diphenhydrAMINE 2%/ZINC 0.1% CREAM 28.4GM TUBE EXT SCH (12:12)
--- NOTE | 2023-07-19 12:19 | Hospitalist Progress Note ---
Date of Service July 19, 2023 Assessment & Plan (1) Bacteremia: Plan: Blood cultures growing gram-positive cocci in chains, identified as strep pneumonia Source could be from pneumonia Sensitivities pending Continue empiric IV Unasyn (2) Aspiration pneumonia: Plan: Coffee-ground emesis x 2 episodes on the evening of 07/16, and morning of 07/17 Hx of aspiration pneumonia Leukocytosis at 17.28 with a neutrophil predominance on arrival; afebrile CXR revealed patchy airspace consolidation consistent with aspiration pneumonitis MRSA swab ordered, pending Blood cultures growing gram-negative cocci in chains, possible strep pneumo Sensitivity pending Continue empiric IV Unasyn Patient is status post speech evaluation and currently on minced meat Elevate HOB >45 degrees Aspiration precautions (3) GI bleed: Plan: In the setting of coffee-ground emesis Hgb 14.7 on arrival Elevated BUN/creatinine at 21.2 Protonix 40 mg IV BID IVF resuscitation with Plasma-Lyte at 125mL/hr x 2 Evaluated by GI, no procedures indicated for now,POA does not want any aggressive procedures. 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 for now then advance to T2DM diet as tolerated Patient normally takes Lantus 17u HS Will dose reduced to 8u HS while inpatient/n.p.o. SSI with target goal range 520217, CF 45, carb ratio 15 Adjust regimen as needed (7) Unspecified mood [affective] disorder: Plan: Continue Depakote Haldol 0.25 mg p.o. q12h as needed for agitation (8) Hypokalemia: Plan: Mild; K 3.4 on arrival Likely secondary to recent vomiting K rider 10mEq x 2 Re-check a.m. potassium (9) COPD (chronic obstructive pulmonary disease): Plan: Continue roflumilast Hold Azithromycin ppx (10) Aphasia: Plan Disposition: Continue to monitor for now in the hospital pending clinical improvement DNR/DNI VTE PPx: TEDs; Hold chemical DVT PPx in setting of ground coffee emesis Admission and Anticipated Discharge Date Admission Date: July 18, 2023 Subjective Patient seen and examined, lying quietly in bed, groggy nonverbal Review of Systems Review of Systems: Unable to obtain due to dementia Physical Exam Physical Exam: The patient is awake, groggy and confused HEENT--PERRL, EOMI, mucous membranes and oropharynx mildly dry Neck--supple. No JVD. No bruits. Thyroid normal, trachea midline, no adenopathy. Heart--normal S1 and S2. No murmurs, rubs or gallops. Lungs--clear bilaterally, no respiratory distress, no accessory muscle use. Abdomen--normal bowel sounds and soft. Extremities--no cyanosis or clubbing. No edema. Dermatologic--normal skin turgor, normal color, no abnormal lymph nodes, no rash. Neurologic--cranial nerves II through XII grossly intact. Rheumatologic--normal range of motion. Psychiatric--normal affect. Results & Data Results & Data Vital Signs (Past 12 Hours) Vital Signs Temp Pulse Resp BP Pulse Ox O2 Del Method 07/19/23 07:18 97.7 F 63 16 111/64 93 Room Air PG Care Time/CCT Total # of Minutes Spent Total Time Spent with Patient: Total time spent is greater than 50% in coordination of care (as documented) at patient's floor/unit and/or counseling patient: Coding Level of Care Code 72672 SUB INP/OBS CARE 2/35MIN Diagnoses Bacteremia R78.81 Aspiration pneumonia J69.0 Aspiration pneumonia type: unspecified Laterality: bilateral Lung location: lower lobe of lung GI bleed K92.2 Dementia F03.90 Dementia behavioral or psychological symptom: unspecified whether behavioral, psychotic, or mood disturbance or anxiety Dementia severity: unspecified severity Dementia type: unspecified type Personal history of pulmonary embolism Z86.711 Type 2 diabetes mellitus with diabetic chronic kidney disease E11.22 Unspecified mood [affective] disorder F39 Hypokalemia E87.6 COPD (chronic obstructive pulmonary disease) J44.9 Aphasia R47.01 Time Spent (min) 35 (2) Aspiration pneumonia Aspiration pneumonia type: unspecified Laterality: bilateral Lung location: lower lobe of lung Qualified Code(s): J69.0 - Pneumonitis due to inhalation of food and vomit (4) Dementia Dementia behavioral or psychological symptom: unspecified whether behavioral, psychotic, or mood disturbance or anxiety Dementia severity: unspecified severity Dementia type: unspecified type Qualified Code(s): F03.90 - Unspecified dementia, unspecified severity, without behavioral disturbance, psychotic disturbance, mood disturbance, and anxiety
[2023-07-19] MEDS: INSULIN ASPART PER UNIT CHARGE SC SCH (12:45)
[2023-07-19] MEDS: POTASSIUM CHLORIDE CRTAB 20 MEQ TABCR PO STA (14:37)
[2023-07-19] MEDS: DIVALPROEX SODIUM SPRINKLE/DEL-REL 125 MG CAP PO SCH (14:54)
[2023-07-19] MEDS: POTASSIUM CHLORIDE / WTR 10 MEQ/100 ML PLCT IV SCH (16:10)
[2023-07-20 07:12] LABS: Basophils # (auto) 0.06 K/uL (0.00-0.20); Basophils % (auto) 0.7 %; Eosinophils # (auto) 0.32 K/uL (0.00-0.50); Hematocrit (blood only) 35.5 % (42.0-52.0); Hemoglobin 11.5 g/dl (14.0-18.0); Immature Granulocytes # (auto) 0.05 K/uL (0.01-0.20); Immature Granulocytes % (auto) 0.6 %; Lymphocytes # (auto) 1.48 K/uL (1.20-3.40); Lymphocytes % (auto) 18.4 %; Mean Corpuscular Hemoglobin 30.6 pg (25.0-34.0); Mean Corpuscular Hgb Conc 32.4 g/dL (32.0-36.0); Mean Corpuscular Volume 94.4 fL (80.0-100.0); Mean Platelet Volume 10.1 fL (9.4-12.4); Monocytes # (auto) 0.84 K/uL (0.11-0.59); Monocytes % (auto) 10.4 %; Neutrophils % (auto) 65.9 %; Platelet Count 204 K/uL (130-400); RDW Coefficient of Variation 12.7 % (11.5-14.5); RDW Standard Deviation 43.9 fL (36.4-46.3); Red Blood Count 3.76 M/uL (4.70-6.10); White Blood Count 8.05 K/ul (4.8-10.8)
[2023-07-20 07:18] LABS: Anion Gap 5 (3-11); BUN Creatinine Ratio 12.7 (10-20); Blood Urea Nitrogen 20 mg/dl (6-23); Calcium 8.8 mg/dl (8.6-10.3); Carbon Dioxide 34 mmol/L (21-32); Chloride 107 mmol/L (98-107); Est GFR (African American) 47.5 ml/min; Glucose 110 mg/dl (70-99(Fasting)); Potassium 3.2 mmol/L (3.5-5.1); Sodium 146 mmol/L (136-145)
[2023-07-20] MEDS: POTASSIUM CHLORIDE / WTR 10 MEQ/100 ML PLCT IV SCH (11:15)
--- NOTE | 2023-07-20 11:16 | Hospitalist Progress Note ---
Date of Service July 20, 2023 Assessment & Plan (1) Bacteremia: Plan: Blood cultures growing gram-positive cocci in chains, identified as strep pneumonia, could be contaminant just 1 bottle growing Source could be from pneumonia Continue empiric IV Unasyn Patient has been afebrile, WBC within normal limits. (2) Aspiration pneumonia: Plan: Coffee-ground emesis x 2 episodes on the evening of 07/16, and morning of 07/17 Hx of aspiration pneumonia CXR revealed patchy airspace consolidation consistent with aspiration pneumonitis MRSA swab negative Blood cultures growing gram-negative cocci in chains, possible strep pneumo Sensitivity pending Continue empiric IV Unasyn Patient is status post speech evaluation and currently on minced meat Elevate HOB >45 degrees Aspiration precautions (3) GI bleed: Plan: In the setting of coffee-ground emesis Hgb 14.7 on arrival Elevated BUN/creatinine at 21.2 Protonix 40 mg IV BID Evaluated by GI, no procedures indicated for now,POA does not want any aggressive procedures. Hemoglobin is stable (4) Dementia: Plan: Patient is currently around his cognitive baseline, per daughter and [facility] Continue Seroquel (5) Personal history of pulmonary embolism: Plan: Per [facility], patient normally takes aspirin daily for prophylaxis (however, this is listed as paroxysmal a fib on med rec) Hold in the setting of hematemesis (6) Type 2 diabetes mellitus with diabetic chronic kidney disease: Plan: Last A1c 7.2% on 07/14/23 Glucose 298 on arrival BSG q6h while NPO, then BSG ACHS once assessed by speech therapy Keep n.p.o. for now then advance to T2DM diet as tolerated Patient normally takes Lantus 17u HS Will dose reduced to 8u HS while inpatient/n.p.o. SSI with target goal range [id number], CF 45, carb ratio 15 Adjust regimen as needed (7) Unspecified mood [affective] disorder: Plan: Continue Depakote Haldol 0.25 mg p.o. q12h as needed for agitation (8) Hypokalemia: Plan: Replace potassium (9) COPD (chronic obstructive pulmonary disease): Plan: Continue roflumilast Hold Azithromycin ppx (10) Aphasia: Plan Disposition: Continue to monitor for now in the hospital pending clinical improvement DNR/DNI VTE PPx: TEDs; Hold chemical DVT PPx in setting of ground coffee emesis Admission and Anticipated Discharge Date Admission Date: July 18, 2023 Subjective Patient seen and examined, lying quietly in bed, groggy nonverbal Review of Systems Review of Systems: Unable to obtain due to dementia Physical Exam Physical Exam: The patient is awake, groggy and confused HEENT--PERRL, EOMI, mucous membranes and oropharynx mildly dry Neck--supple. No JVD. No bruits. Thyroid normal, trachea midline, no adenopathy. Heart--normal S1 and S2. No murmurs, rubs or gallops. Lungs--clear bilaterally, no respiratory distress, no accessory muscle use. Abdomen--normal bowel sounds and soft. Extremities--no cyanosis or clubbing. No edema. Dermatologic--normal skin turgor, normal color, no abnormal lymph nodes, no rash. Neurologic--cranial nerves II through XII grossly intact. Rheumatologic--normal range of motion. Psychiatric--normal affect. Results & Data Results & Data Vital Signs (Past 12 Hours) Vital Signs Temp Pulse Resp BP Pulse Ox O2 Del Method 07/20/23 07:28 97.5 F L 64 16 123/69 96 Room Air PG Care Time/CCT Total # of Minutes Spent Total Time Spent with Patient: Total time spent is greater than 50% in coordination of care (as documented) at patient's floor/unit and/or counseling patient: Coding Level of Care Code 16189 SUB INP/OBS CARE 2/35MIN Diagnoses Bacteremia R78.81 Aspiration pneumonia J69.0 Aspiration pneumonia type: unspecified Laterality: bilateral Lung location: lower lobe of lung GI bleed K92.2 Dementia F03.90 Dementia behavioral or psychological symptom: unspecified whether behavioral, psychotic, or mood disturbance or anxiety Dementia severity: unspecified severity Dementia type: unspecified type Personal history of pulmonary embolism Z86.711 Type 2 diabetes mellitus with diabetic chronic kidney disease E11.22 Unspecified mood [affective] disorder F39 Hypokalemia E87.6 COPD (chronic obstructive pulmonary disease) J44.9 Aphasia R47.01 Time Spent (min) 35 (2) Aspiration pneumonia Aspiration pneumonia type: unspecified Laterality: bilateral Lung location: lower lobe of lung Qualified Code(s): J69.0 - Pneumonitis due to inhalation of food and vomit (4) Dementia Dementia behavioral or psychological symptom: unspecified whether behavioral, psychotic, or mood disturbance or anxiety Dementia severity: unspecified severity Dementia type: unspecified type Qualified Code(s): F03.90 - Unspecified dementia, unspecified severity, without behavioral disturbance, psychotic disturbance, mood disturbance, and anxiety
[2023-07-21 09:21] LABS: Basophils # (auto) 0.06 K/uL (0.00-0.20); Basophils % (auto) 0.8 %; Eosinophils # (auto) 0.42 K/uL (0.00-0.50); Eosinophils % (auto) 5.8 %; Hematocrit (blood only) 34.7 % (42.0-52.0); Hemoglobin 11.6 g/dl (14.0-18.0); Immature Granulocytes # (auto) 0.03 K/uL (0.01-0.20); Immature Granulocytes % (auto) 0.4 %; Lymphocytes # (auto) 1.43 K/uL (1.20-3.40); Lymphocytes % (auto) 19.9 %; Mean Corpuscular Hemoglobin 31.2 pg (25.0-34.0); Mean Corpuscular Hgb Conc 33.4 g/dL (32.0-36.0); Mean Corpuscular Volume 93.3 fL (80.0-100.0); Mean Platelet Volume 9.8 fL (9.4-12.4); Monocytes # (auto) 0.68 K/uL (0.11-0.59); Monocytes % (auto) 9.5 %; Neutrophils # (auto) 4.57 K/uL (1.40-6.50); Neutrophils % (auto) 63.6 %; Platelet Count 218 K/uL (130-400); RDW Coefficient of Variation 12.5 % (11.5-14.5); RDW Standard Deviation 42.5 fL (36.4-46.3); Red Blood Count 3.72 M/uL (4.70-6.10); White Blood Count 7.19 K/ul (4.8-10.8)
[2023-07-21 09:37] LABS: Anion Gap 6 (3-11); Blood Urea Nitrogen 16 mg/dl (6-23); Calcium 8.8 mg/dl (8.6-10.3); Carbon Dioxide 27 mmol/L (21-32); Chloride 112 mmol/L (98-107); Est GFR (African American) 52.7 ml/min; Est GFR (Non-African American) 45.5 ml/min; Glucose 108 mg/dl (70-99(Fasting)); Potassium 3.8 mmol/L (3.5-5.1); Sodium 145 mmol/L (136-145)
--- NOTE | 2023-07-21 11:49 | Discharge Summary ---
Date of Service July 21, 2023 Admission HPI Per Admitting Provider Leobardo is a 77-year-old male with PMH of dementia, aspiration pneumonia, GERD, COPD, HLD, aphasia, pulmonary embolism, and T2DM. He presented via EMS from [facility] for coffee-ground emesis that began the evening of 07/16. Two episodes of coffee-ground emesis, with the first being last night around midnight, and the second being around 0800 on 07/17. Patient is a poor historian at baseline due to his advanced dementia; he is nonverbal in the exam room, and does not respond to questioning or commands. Per review of EMS notes, he did not take his regular morning medications today. Spoke on the phone with TYSON Martinez at [facility] ([phone]), to obtain further history. Hx of Carlton's esophagus. Patient has a history of aspiration pneumonia, and has had several recurrent episodes of ground coffee emesis over the past year; records from [facility]. He currently takes iron, Protonix, and Carafate for this. TYSON also notes that he is on azithromycin Friday, Friday, and Friday for chronic aspiration pneumonia prophylaxis; ? may be for COPD. Patient does have a history of a pulmonary embolism, and is currently on aspirin for prophylaxis, but did not take aspirin yesterday due to the coffee-ground emesis. TYSON also notes that he was previously on hospice services, but this was revoked during his last hospital visit, and the daughter/POA has chosen not to reinitiate hospice. Patient has pulmonary nodules, however these were never worked up. As for cognitive baseline, TYSON reports that he typically responds to commands, but is was around his baseline the last time he was seen. She notes he can become agitated in the past, and has required PRN Haldol at times. Patient is [employer] per his POL[employer] form signed on 12/16/2022. Spoke on the phone with patient's daughter/POA (Edwin) who is okay with him coming into the hospital for the treatment of aspiration PNA; this would effectively revoke his current POLST form for comfort measures only (per Dr. Crockett). Patient's daughter clarified that the patient was placed on hospice 1.5 years ago for what was thought to be terminal cancer; after about a year he was taken off hospice. She declines a palliative care consult at this time. However, she would like to speak with case management regarding options for a new senior care that is closer to her place in [place]. Patient's daughter notes that he does have a mild allergy to amoxicillin (notes that his face flushes and turns red). However, she does note that he has been given Augmentin and Unasyn in the past for his aspiration pneumonia and has never had rash, hives, or anaphylaxis. She does confirm that he is a DNR/DNI, and would like no scopes or feeding tubes. She believes he was placed on prednisone recently for his rash. She also notes that he has been around his cognitive baseline, and is not normally oriented to name/, and does not normally respond to questioning/commands. She has been trying to decrease his Seroquel from 3 times daily to twice daily. ED course: Zosyn 4.5 g IV NSS 500 mL IV Famotidine 20 mg IV Protonix 4 mg IV Zofran 4 mg IV Unable to obtain ROS given patient's advanced dementia. Principal Diagnosis Coffee-ground emesis Discharge Exam The patient is awake, groggy and confused HEENT--PERRL, EOMI, mucous membranes and oropharynx mildly dry Neck--supple. No JVD. No bruits. Thyroid normal, trachea midline, no adenopathy. Heart--normal S1 and S2. No murmurs, rubs or gallops. Lungs--clear bilaterally, no respiratory distress, no accessory muscle use. Abdomen--normal bowel sounds and soft. Extremities--no cyanosis or clubbing. No edema. Dermatologic--normal skin turgor, normal color, no abnormal lymph nodes, no rash. Neurologic--cranial nerves II through XII grossly intact. Rheumatologic--normal range of motion. Psychiatric--normal affect. Discharge Data Allergies Allergy/AdvReac Type Severity Reaction Status Date / Time lorazepam Allergy Unknown Verified 07/18/23 10:36 IVP dye Allergy Unknown Uncoded 07/18/23 10:36 Consultations 07/18/23 12:42 ED Decision to Admit Stat 07/19/23 07:57 Consult Gastroenterology Routine Hospital Course (1) Bacteremia: Blood cultures growing gram-positive cocci in chains, identified as strep pneumonia, could be contaminant just 1 aerobic bottle growing Source could be from pneumonia Transition to p.o. cefdinir for 10 more days Patient has been afebrile, WBC within normal limits. (2) Aspiration pneumonia: Coffee-ground emesis x 2 episodes on the evening of 07/16, and morning of 07/17 Hx of aspiration pneumonia CXR revealed patchy airspace consolidation consistent with aspiration pneumonitis MRSA swab negative Blood cultures growing gram-negative cocci in chains, possible strep pneumo Sensitivity pending Continue empiric IV Unasyn Patient is status post speech evaluation and currently on minced meat Elevate HOB >45 degrees Aspiration precautions (3) GI bleed: In the setting of coffee-ground emesis Hgb 14.7 on arrival Elevated BUN/creatinine at 21.2 Protonix 40 mg IV BID Evaluated by GI, no procedures indicated for now,POA does not want any aggressive procedures. 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 for now then advance to T2DM diet as tolerated Patient normally takes Lantus 17u HS Will dose reduced to 8u HS while inpatient/n.p.o. SSI with target goal range [id number], CF 45, carb ratio 15 Adjust regimen as needed (7) Unspecified mood [affective] disorder: Continue Depakote Haldol 0.25 mg p.o. q12h as needed for agitation (8) Hypokalemia: Replace potassium (9) COPD (chronic obstructive pulmonary disease): Continue roflumilast Hold Azithromycin ppx (10) Aphasia: Plan Disposition: Discharge back to the facility DNR/DNI VTE PPx: TEDs; Hold chemical DVT PPx in setting of ground coffee emesis Total Time Total Time Spent Total Time Spent (In Minutes): 35 Discharge Plan Discharge Items Patient Disposition: Transfer Longterm Fac Reason For Visit: ASPIRATION PNA, GROUND-COFFEE EMESIS Discharge Diagnosis: Aspiration pneumonia, coffee-ground emesis Activity: Resume your previous activity Non-emergency contact: Primary Care Provider Call non-emergency contact if: you have any medication questions Follow-up/Referrals: Humza Sorenson [Primary Care Provider] - Diet: Regular Addtl Attending Provider Instructions: Please make appointment to follow-up with her regular PCP Pending Studies at Discharge: No Stand-Alone Forms: My [facility] Skilled Items Patient informed of condition?: Yes DNR: Yes Discharge Level of Care: Skilled Communicable Disease: No Discharge Prognosis: Stable Lines: None Urinary Catheter: No Medications and DC Order Prescriptions: New cefdinir 300 mg capsule 300 mg PO BID 10 Days Qty: 20 0RF Continued furosemide 40 mg tablet 40 mg PO DAILY haloperidol 0.5 mg tablet 0.25 mg PO Q12H PRN (Reason: Behavioral Disturbance) acetaminophen 325 mg Tablet 650 mg PO Q6H MDD 3gm/24hr PRN (Reason: Pain or Fever) sucralfate 1 gram tablet 1 g PO BID Benadryl Itch Stopping 1-0.1 % Cream 1 applic TOPICAL DAILY ondansetron HCl 4 mg Tablet 4 mg PO Q6H PRN (Reason: Nausea And Vomiting) dextrose 40 % Gel 1 ea PO DAILY PRN (Reason: Hypoglycemia less than 60) Rx Instructions: Pt must be responsive and able to safely swallow clobetasol 0.05 % Cream 1 applic TOPICAL BID quetiapine 100 mg tablet 150 mg PO BID pantoprazole 20 mg tablet,delayed release (DR/EC) 20 mg PO QAM magnesium hydroxide [Milk of Magnesia] 400 mg/5 mL Suspension 2,400 mg PO DAILY PRN (Reason: Constipation) Rx Instructions: Give on the morning of the 3rd day if no BM bisacodyl [Dulcolax (bisacodyl)] 10 mg Suppository 10 mg IL DAILY PRN (Reason: Constipation) Rx Instructions: If no BM in 3 days ferrous sulfate [FeroSul] 325 mg (65 mg iron) tablet 325 mg PO BID pramoxine 1 % Lotion 1 applic TOPICAL BID Enema 19-7 gram/118 mL Enema 118 ml IL DAILY PRN (Reason: Constipation) Rx Instructions: Give on the morning of 4th day of no BM. If no BM after enema, notify aspirin 81 mg tablet,chewable 81 mg PO DAILY mirtazapine 15 mg tablet 15 mg PO HS divalproex 125 mg capsule, delayed rel sprinkle 0 mg PO TID Rx Instructions: Take 250mg in the morning, 125mg in the afternoon and 250mg at bedtime. (Verified by Val DOWNING @ [facility]) insulin lispro [Humalog KwikPen Insulin] 100 unit/mL Insulin Pen 1 sliding scale dose SUBCUT USEASDIRECTD Rx Instructions: 0-100 = 0units; 101-150 = 2units; 151-200 = 4units; 201-250 = 6units; 251-300 = 8units; 301-350 = 10units; 351-400 = 12units; 401+ give 14 units and call MD buckley 500 mg tablet 500 mg PO 3XWK Rx Instructions: Friday/Friday/Friday insulin glargine [Lantus Solostar U-100 Insulin] 100 unit/mL (3 mL) insulin pen 17 unit SUBCUT HS roflumilast 500 mcg tablet 500 mcg PO DAILY glucagon HCl [Glucagon (HCl) Emergency Kit] 1 mg Recon Soln 1 mg IM DAILY PRN (Reason: hypoglycemia ) Discharge Orders: Discharge Order (Routine); Ordered 07/21/23 Ordered By: Bimal Kuhn Admission Data Admit Date/Time: 07/20/23 09:56 Attending Provider: Bimal Kuhn Admit Provider: Robel Crockett Primary Care Provider: Humza Sorenson Other Providers: Robel Crockett; Kee Mascorro Coding Level of Care Code 53912 INP/OBS DISCH >30 MIN Diagnoses Bacteremia R78.81 Aspiration pneumonia J69.0 Aspiration pneumonia type: unspecified Laterality: bilateral Lung location: lower lobe of lung GI bleed K92.2 Dementia F03.90 Dementia behavioral or psychological symptom: unspecified whether behavioral, psychotic, or mood disturbance or anxiety Dementia severity: unspecified severity Dementia type: unspecified type Personal history of pulmonary embolism Z86.711 Type 2 diabetes mellitus with diabetic chronic kidney disease E11.22 Unspecified mood [affective] disorder F39 Hypokalemia E87.6 COPD (chronic obstructive pulmonary disease) J44.9 Aphasia R47.01 Time Spent (min) 35
== END 2023-07-21 14:31 | DRG 871 ==
LOC: EDINP 09:09 → ED 09:09 → SUATTDRO 13:48 → EDINP 15:44 → 3N 16:17